=== PATIENT | female | born 1955 | race Caucasian/White ===

== ENCOUNTER → 2024-03-01 10:58 | Outpatient (REF) | payer MEDICARE, OTHER, SELFPAY | LOC: RAD 10:58 | PROVIDERS: ATTENDING PHYSICIAN Family Medicine | DX: K51.80 Other ulcerative colitis without complications (principal); M25.531 Pain in right wrist; M25.532 Pain in left wrist; M54.2 Cervicalgia | CPT/HCPCS: 73110 ==

== ENCOUNTER → 2024-03-03 10:53 | Outpatient (REF) | payer MEDICARE, OTHER, SELFPAY | LOC: RAD 10:53 | PROVIDERS: ATTENDING PHYSICIAN Family Medicine | DX: K51.80 Other ulcerative colitis without complications (principal); M54.2 Cervicalgia | CPT/HCPCS: 72052 ==

== ENCOUNTER → 2024-05-13 11:08 | Outpatient (REF) | payer MEDICARE, OTHER, SELFPAY | LOC: RCS 11:08 | PROVIDERS: ATTENDING PHYSICIAN Internal Medicine; FAMILY PHYSICIAN Nurse Practitioner Primary Care | DX: R00.2 Palpitations (principal); I10 Essential (primary) hypertension; I34.0 Nonrheumatic mitral (valve) insufficiency | CPT/HCPCS: 93306 ==

== ENCOUNTER → 2024-05-20 10:19 | Outpatient (REF) | payer MEDICARE, OTHER, SELFPAY | LOC: RCS 10:19 | PROVIDERS: ATTENDING PHYSICIAN Internal Medicine; FAMILY PHYSICIAN Nurse Practitioner Primary Care | DX: R00.2 Palpitations (principal) | CPT/HCPCS: 93225; 93226 ==